=== PATIENT | female | born 1985 | race Caucasian/White ===

== ENCOUNTER → 2024-07-17 08:28 | Outpatient (REF) | payer OTHER, SELFPAY | LOC: HWRAD 08:28 | PROVIDERS: ATTENDING PHYSICIAN Student in an Organized Health Care Education/Training Program | DX: Z76.89 Persons encountering health services in other specified circumstances (principal) | CPT/HCPCS: 72052; 72072; 72110; 76830; 76856 ==

== ENCOUNTER 2024-09-25 06:14 | Day surgery (SDC) | payer OTHER, SELFPAY ==
[2024-09-14 08:51] LABS: % Basophils 0.9 % (0-2); % Eosinophils 2.1 % (0-6); % Immature Granulocytes 0.2 % (0-0.5); % Lymphocytes 27.5 % (20.5-51.1); % Monocytes 10.4 % (1.7-9.3); % Neutrophils 58.9 % (42.2-75.2); Absolute Eosinophils 0.1 10^3/uL (0-0.7); Absolute Lymphocytes 1.2 10^3/uL (1.2-3.4); Absolute Monocytes 0.4 10^3/uL (0.1-0.6); Absolute Neutrophils 2.5 10^3/uL (1.4-6.5); Hematocrit 39.6 % (37.0-47.0); Hemoglobin 12.9 g/dL (12.0-16.0); Mean Corp Hgb Conc. 32.6 g/dL (33.0-37.0); Mean Corpuscular Hgb 30.1 pg (27.0-31.0); Mean Corpuscular Volume 92.3 fL (81.0-99.0); Mean Platelet Volume 10.7 fL (7.4-10.4); Nucleated Red Blood Cells % 0 %; Platelet Count 265 10^3/uL (130-400); Red Blood Cell Count 4.29 10^6/uL (4.20-5.40); Red Cell Dist. Width 13.4 % (11.5-14.5); White Blood Cell Count 4.2 10^3/uL (4.8-10.8)
[2024-09-14 11:02] LABS: Blood Urea Nitrogen 14 mg/dl (7-17); Calcium 8.1 mg/dl (8.4-10.2); Carbon Dioxide 25 mmol/L (22-30); Chloride 106 mmol/L (98-107); Glucose 86 mg/dl (70-99); Potassium 4.5 mmol/L (3.5-5.1); Sodium 139 mmol/L (135-145); eGFR > 60.00
[2024-09-14 13:35] VITALS: BMI 19.0
[2024-09-25] VITALS (9 sets, daily range): BP systolic 108–147; BP diastolic 67–97; BMI 19.7
[2024-09-25] MEDS: CELEBREX 200 MG PO (09:02)
[2024-09-25] MEDS: TYLENOL 1000 MG PO (09:03)
--- NOTE | 2024-09-25 09:04 | PTCARENOTE ---
Patient has 4 piercings, 1 to the R ear, 2 to the L ear, 1 to the nose. Anesthesiologist made aware. Orders to put tape over the piercing sites. Will monitor patient.
[2024-09-25] MEDS: NORMOSOL-R/PLASMALYTE-A 1000 IV (09:28)
== END 2024-09-25 15:20 | disposition home or self-care (01) ==
LOC: SDS 06:14
PROVIDERS: ATTENDING PHYSICIAN Obstetrics & Gynecology; FAMILY PHYSICIAN Psychiatry & Neurology Psychiatry
DX: N92.0 Excessive and frequent menstruation with regular cycle (principal); D64.9 Anemia, unspecified; F17.210 Nicotine dependence, cigarettes, uncomplicated; Z83.49 Family history of other endocrine, nutritional and metabolic diseases; Z80.0 Family history of malignant neoplasm of digestive organs; Z88.0 Allergy status to penicillin; Z88.1 Allergy status to other antibiotic agents; Z88.2 Allergy status to sulfonamides; Z88.5 Allergy status to narcotic agent
CPT/HCPCS: 58558; 88305; 36415; 80048; 85025; 86850; 86900; 86901

== ENCOUNTER 2025-03-02 10:22 | Emergency (ER) | payer OTHER, SELFPAY ==
[2025-03-02 10:48] VITALS: BP 136/77
--- NOTE | 2025-03-02 11:17 | ED.GENMED ---
History of Present Illness
General
Chief Complaint: Head Injury
Source: patient
Exam Limitations: none
Time Seen by Provider: 03/02/25 10:58
History of Present Illness
History of Present Illness:
39yoF with a history of prior concussions presenting for evaluation after a head injury. Patient was kicked in her face by her horse 4 days ago. There was no loss of consciousness. She vomited immediately after the injury. She states she has not
been doing well since then. She has been having headaches, nausea, vomiting, and dizziness. Symptoms are waxing and waning. She tried to drive to [facility] this morning which did not go well. She has vomited 2x since this morning. No blood thinners.
Past History
Past History
ED Past Medical History: None
ED Past Surgical History: None
Social History
Tobacco: Smoker
Alcohol: None
Drug: None
Personal: Single
Living: alone
Employment: Employed
Phy Exam
General Physical Exam
General Presentation: well appearing and no apparent distress
General Skin: warm and dry
General Habitus: normal
General Mental: alert
ENT Exam
ENT Exam: normocephalic and other (+Tenderness at R zygomatic process. No skin changes or crepitus.)
Eye Exam
Eye Exam: PERRL, EOMI and conjunctiva normal
Neurological Exam
Neurological Exam: alert, cerebellum intact and other (Normal finger to nose and heel to martinez bilaterally. )
[place] Coma Scale
Eye Opening: Spontaneous
Verbal Response: Oriented
Motor Response: Obeys Commands
GCS Total Score: 15
Skin Exam
Skin Exam: normal color and warm/dry
Psychiatric Exam
Psychiatric Exam: normal mood/affect
Course
Orders/Labs/Results
Orders:
Orders
03/02/25 10:54
CT Head W/o Iv Contrast Urgent
Comment:
Reason For Exam: head strike
03/02/25 11:13
CT Facial Bones W/o Iv Contras Urgent
Comment:
Reason For Exam: R zygomatic pain, injury
Vital Signs
Initial and Last Documented VS:
Initial Vital Signs
Temp Pulse Resp BP Pulse Ox
97.5 F 76 20 136/77 100
03/02/25 10:48 03/02/25 10:48 03/02/25 10:48 03/02/25 10:48 03/02/25 10:48
Last Documented Vital Signs
Temp Pulse Resp BP Pulse Ox
97.5 F 76 20 136/77 100
03/02/25 10:48 03/02/25 10:48 03/02/25 10:48 03/02/25 10:48 03/02/25 11:19
MDM/Problems Addressed
Differential Diagnosis Includes:
39yoF here with ongoing headaches, dizziness, and intermittent n/v since being kicked in the face by her horse 4 days ago. VSS. No external signs of head trauma on exam. She is awake, alert, with a GCS of 15. No ataxia or focal neuro deficits on
exam. Differential diagnosis includes but is not limited to: closed head injury, concussion, fracture, intracranial hemorrhage
CT head and facial bones obtained which are negative for traumatic injuries. Presentation consistent with a concussion. Supportive care discussed and prescription given for Zofran. Advised f/u with PCP. She was discharged in stable condition.
*Pulse Oximetry
SaO2: 100
Oxygen Mode of Delivery: Room air
Patient hypoxic: no (100%)
*Critical Care Note
Total Time (30-74mins, 75-104mins- exclusive of procedures): Not Applicable
ED Attending Note
-
Portions of this chart may have been created with voice recognition software.� Occasional wrong word or��sound alike� substitutions may have occurred due to the inherent limitations of voice recognition software.
Discharge Plan
Departure
Patient Disposition: Home (Routine Discharge)
Date of Disposition: 03/02/25
Time of Disposition: 12:42
Patient with high blood pressure during this ER visit?: No
Discharge Problem:
Concussion
Instructions: Concussion, Adult (DC)
Prescriptions:
New
ondansetron 4 mg tablet,disintegrating
4 mg PO Q6H PRN (Reason: nausea and vomiting) Qty: 20 0RF
No Action
ferrous sulfate 325 mg (65 mg iron) Tablet
325 mg PO HS
vitamin B complex Tablet
1 tab PO HS
Vitamin D3
1 cap PO DAILY
misoprostol 200 mcg Tablet
200 mcg PO BID
Patient Comments:
take 1 tab in the PM and 1 tab this am
Referrals:
Tonja Mauricio, [Family Provider, Family Practice]
Stand Alone Forms: Return to Work
Activity Restrictions/Additional Instructions:
Take Zofran as needed for nausea. Take Tylenol and ibuprofen as needed for headaches. Drink plenty of fluids and stay hydrated. You may do very light aerobic exercise for now but avoid any strenuous activity until symptoms improve.
Please follow-up with your family doctor next week. Return to the ER with any new or worsening symptoms.
Interventions
Interventions:
*Risk Screen - Suicide Last Done: 03/02/25 10:48
*General Assessment Last Done: 03/02/25 10:48
*Neglect/Abuse Screening Last Done: 03/02/25 10:48
*Nursing Disposition Last Done: 03/02/25 12:58
ED- Neurological Assessment Last Done: 03/02/25 11:53
Discharge Date and Time
Discharge Date/Time: 03/02/25 12:58
Print Language: [email or web address]
== END 2025-03-02 12:58 | disposition home or self-care (01) ==
LOC: EMR 10:22
PROVIDERS: EMERGENCY PHYSICIAN Emergency Medicine; FAMILY PHYSICIAN Family Medicine
DX: S06.0X0A Concussion without loss of consciousness, initial encounter (principal); W55.12XA Struck by horse, initial encounter; F17.200 Nicotine dependence, unspecified, uncomplicated
CPT/HCPCS: 99285; 70450; 70486